=== PATIENT | male | born 1995 | race Caucasian/White ===

== ENCOUNTER 2022-12-28 00:02 | Emergency (ER) | payer MEDICAID, OTHER ==
[~2022-12-28] VITALS: Ht 182.9 cm; Wt 90.7 kg
[2022-12-28] MEDS ORDERED: DOXY100T2 PO (00:58)
[2022-12-28] MEDS ORDERED: ACYC-108 PO (00:58)
[2022-12-28] MEDS ORDERED: CLOT15CR5 TP (00:58)
[2022-12-28] MEDS ORDERED: DOXYCYCLINE HYCLATE 100 MG TABLET ONE (00:59)
[2022-12-28] MEDS ORDERED: CEFTRIAXONE 500 MG VIAL ONE (00:59)
[2022-12-28] MEDS ORDERED: CEFTRIAXONE 500 MG VIAL IM ONE (01:00)
[2022-12-28] MEDS ORDERED: DOXYCYCLINE HYCLATE 100 MG TABLET PO ONE (01:00)
[2022-12-28 01:41] LABS: *BILIRUBIN,URIN NEGATIVE (NEGATIVE); *COLOR,URINE YELLOW (YELLOW); *KETONES,URINE NEGATIVE (NEGATIVE); *PROTEIN,URINE NEGATIVE (NEGATIVE); *UROBILINOGEN,URINE 0.2 E.U./dl (NORMAL); LEUKOCYTE ESTERASE ,URINE 2+ (NEGATIVE); NITRITE, URINE NEGATIVE (NEGATIVE); UGLUCOSE NEGATIVE (NEGATIVE)
[2022-12-28 01:45] LABS: *BLOOD, URINE TRACE (NEGATIVE); *CLARITY,URINE SLIGHTLY CLOUDY (CLEAR)
[2022-12-28 01:48] VITALS: BP 132/70; TEMP 97.8; O2SAT 97
[2022-12-28 01:57] LABS: BACTERIA,URINE FEW /HPF (NONE SEEN); SQUAMOUS EPITHELIAL CELL,UR NONE SEEN /HPF (NONE SEEN); WBC,URINE TNTC /HPF (0-3)
[2022-12-31 19:06] LABS: *CHLAMYDIA NAA Negative (Negative); *TRIC.VAG. NAA Negative (Negative)
[2022-12-31 20:06] LABS: *GC NAA Positive (Negative)
== END 2022-12-28 01:49 | disposition home or self-care (01) ==
LOC: ER 00:30
DX: R36.9 Urethral discharge, unspecified (principal); L30.4 Erythema intertrigo; Z79.2 Long term (current) use of antibiotics; Z79.899 Other long term (current) drug therapy
CPT/HCPCS: 99283; 81001; 96372; 87040; 87491; J0696; A4663